=== PATIENT | female | born 1985 ===

== ENCOUNTER → 2018-10-11 | Outpatient (REF) | LOC: M LAB LCGH 15:52 | PROVIDERS: ATTEND Obstetrics & Gynecology Obstetrics | DX: O72.0 Third-stage hemorrhage (principal) ==

== ENCOUNTER → 2018-11-24 | Outpatient (REF) | payer BC | LOC: M LAB LCGH 12:37 | PROVIDERS: ATTEND Obstetrics & Gynecology | DX: Z30.2 Encounter for sterilization (principal) ==

== ENCOUNTER → 2018-12-21 | Outpatient (REF) | LOC: M LAB LCGH 15:29 | PROVIDERS: ATTEND Physician Assistant | DX: D22.5 Melanocytic nevi of trunk (principal) ==